=== PATIENT | male | born 1970 | race Asian ===

== ENCOUNTER 2018-07-04 10:58 | Inpatient (IN) | payer OTHER ==
[~2018-07-04] VITALS: Ht 175.3 cm; Wt 88.5 kg
[2018-07-04] MEDS ORDERED: LOSA25TA12 PO (11:44)
[2018-07-04] MEDS ORDERED: CARV12.545 PO (11:44)
[2018-07-04 14:09] LABS: BASOPHILS % 0.4 % (0.0-2.0); EOSINOPHILS % 1.2 % (0.0-5.0); HEMATOCRIT. 44.1 % (42.0-52.0); HEMOGLOBIN. 15.1 g/dL (14.0-18.0); LYMPHOCYTES % 22.4 % (20.0-50.0); MEAN CORPUSCULAR HEMOGLOBIN 29.9 pg (28.0-32.0); MEAN CORPUSCULAR VOLUME 87.3 fL (80.0-94.0); MEAN PLATELET VOLUME 8.9 fl (7.4-10.4); MONOCYTES % 5.8 % (2.0-8.0); NEUTROPHILS % 70.2 % (40.0-76.0); PLATELET 224 x1000/uL (130-400); RED BLOOD CELL COUNT 5.05 mill/uL (4.7-6.1); RED CELL DISTRIBUTION WIDTH 12.5 % (11.6-14.6)
[2018-07-04 14:14] LABS: CHLORIDE 106 mEq/L (98-107); INR 1.1; PROTHROMBIN TIME 11.5 sec (9.6-11.0)
[2018-07-04] MEDS ORDERED: ASPIRIN 325MG EC TABLET PO ONE (14:30)
[2018-07-04 14:57] LABS: CLARITY URINE CLEAR (CLEAR); COLOR URINE YELLOW (YELLOW); KETONES URINE NEGATIVE (NEGATIVE); LEUKOCYTE ESTERASE URINE NEGATIVE (NEGATIVE); NITRITE URINE NEGATIVE (NEGATIVE); OCCULT BLOOD URINE NEGATIVE (NEGATIVE); PH URINE 7.5 (4.5-8.0); PROTEIN URINE NEGATIVE (NEGATIVE); SPECIFIC GRAVITY URINE 1.006 (1.005-1.030); UROBILINOGEN URINE 0.2 E.U./dL (0.2-1.0)
[2018-07-04] MEDS ORDERED: ONDANSETRON HCL 4MG/2ML INJ IV PRN (15:30)
[2018-07-04] MEDS ORDERED: ACETAMINOPHEN 325MG TABLET PO PRN (15:30)
[2018-07-04] MEDS: ENOXAPARIN 40MG/0.4ML SYR SUBCUT SCH (17:00)
[2018-07-04] MEDS: CARVEDILOL 12.5MG TABLET PO SCH (21:00)
[2018-07-04 22:25] VITALS: BP 122/82
[2018-07-05] VITALS: BP 108/69
[2018-07-05 04:00] VITALS: BP 93/57
[2018-07-05 08:00] VITALS: BP 104/70
[2018-07-05] MEDS: LOSARTAN POTASSIUM 25 MG TABLET PO SCH (09:00)
[2018-07-05] MEDS: CARVEDILOL 12.5MG TABLET PO SCH ×2 (09:00→21:09)
[2018-07-05 12:00] VITALS: BP 108/72
[2018-07-05 14:43] LABS: *AMPHETAMINES SCREEN URINE NEGATIVE (NEGATIVE)
[2018-07-05 14:44] LABS: *BARBITURATES SCREEN URINE NEGATIVE (NEGATIVE); *BENZODIAZEPINES SCREEN URINE NEGATIVE (NEGATIVE); *COCAINE SCREEN URINE NEGATIVE (NEGATIVE); OPIATES URINE SCREEN NEGATIVE (NEGATIVE); PHENCYCLIDINE URINE SCREEN NEGATIVE (NEGATIVE)
[2018-07-05 14:45] LABS: CANNABINOID URINE SCREEN NEGATIVE (NEGATIVE)
[2018-07-05 14:46] LABS: METHADONE URINE SCREEN NEGATIVE (NEGATIVE)
[2018-07-05] MEDS: CLOPIDOGREL 75MG TABLET PO SCH (18:48)
[2018-07-05] MEDS: ENOXAPARIN 40MG/0.4ML SYR SUBCUT SCH (18:48)
[2018-07-05 19:07] LABS: T4 FREE 1.01 ng/dL (0.76-1.46)
[2018-07-05 19:16] LABS: FOLIC ACID (FOLATE) SERUM 10.3 ng/mL (>5.38)
[2018-07-05 20:00] VITALS: BP 125/66
[2018-07-06 04:00] VITALS: BP 105/81
[2018-07-06 08:00] VITALS: BP 125/84
[2018-07-06] MEDS: CLOPIDOGREL 75MG TABLET PO SCH (08:40)
[2018-07-06] MEDS: LOSARTAN POTASSIUM 25 MG TABLET PO SCH (08:40)
[2018-07-06] MEDS: CARVEDILOL 12.5MG TABLET PO SCH (08:40)
[2018-07-06 11:40] VITALS: BP 125/84
[2018-07-06 12:15] VITALS: BP 119/74
== END 2018-07-06 13:45 | disposition home or self-care (01) | DRG 69 ==
LOC: ER 10:58 → 8WST 14:37 → EDBEDREQ 15:02 → ENRESERV 21:28 → 8WST 07-05 05:29
PROVIDERS: ADMIT Internal Medicine; ATTEND Internal Medicine
DX: G45.9 Transient cerebral ischemic attack, unspecified (principal); I10 Essential (primary) hypertension; E78.00 Pure hypercholesterolemia, unspecified; I25.10 Atherosclerotic heart disease of native coronary artery without angina pectoris; E78.5 Hyperlipidemia, unspecified; Z95.5 Presence of coronary angioplasty implant and graft; I25.2 Old myocardial infarction; Z79.899 Other long term (current) drug therapy
CPT/HCPCS: 36415; 70544; 70551; 71045; 80061; 80305; 82607; 82746; 82962; 83036; 84439; 84443; 84481; 85651; 93005; 93306; 93880; 96372; 97161; 97165; 99285; J1650